=== PATIENT | male | born 1965 ===

== ENCOUNTER 2018-11-09 16:34 | Observation (INO) ==
[2018-11-09] MEDS ORDERED: PNEUMOCOCCAL VACCINE (13 VALENT) 0.5 ML SYRINGE IM ONE (18:17)
[2018-11-09] MEDS ORDERED: NITROGLYCERIN SL 0.4 MG TABLET SL PRN (18:34)
[2018-11-09] MEDS ORDERED: GLUCAGON 1 MG VIAL IM PRN (18:34)
[2018-11-09] MEDS ORDERED: DEXTROSE 50% 25 GM/50 ML SYRINGE IV PRN (18:34)
[2018-11-09] MEDS ORDERED: ACETAMINOPHEN 325 MG TABLET PO PRN (18:34)
[2018-11-09] MEDS ORDERED: ONDANSETRON 4 MG/2 ML VIAL IV PRN (18:34)
[2018-11-09] MEDS: SODIUM CHLORIDE 0.45% 1,000 ML IV SCH (18:45)
[2018-11-09] MEDS ORDERED: SIMVASTATIN 20 MG TABLET PO SCH (21:00)
[2018-11-09] MEDS: INSULIN REGULAR 100 UNIT/ML SUBCUT SCH (22:11)
[2018-11-10 00:49] LABS: Basophils % 0.4 % (0.0-0.8); Eosinophils # 1.1 10*3/uL (0.0-0.87); Hematocrit 40.2 VOL% (42.0-52.0); Hemoglobin 14.3 GM/DL (14.0-18.0); Immature Granulocytes % 0.4 %; Immature Granulocytes Absolute 0.03 #; Lymphocytes # 1.2 10*3/uL (1.4-4.0); Lymphocytes % 15.8 % (21.2-54.2); Mean Corpuscular HGB Conc 35.6 GM/DL (32-36); Mean Corpuscular Hemoglobin 32 PG (27-34); Mean Corpuscular Volume 90.1 FL (87-102); Mean Platelet Volume 10.1 FL (9.6-12.0); Monocytes # 0.4 10*3/uL (0.11-0.8); Monocytes % 5.3 % (1.7-12.7); Neutrophils # 4.8 10*3/uL (1.4-7.4); Neutrophils % 63.1 % (38.7-73.9); Platelet Count 111 T/CUMM (130-400); Red Blood Count 4.46 MC/CUMM (3.8-5.5); Red Cell Distribution Width 12.7 % (9.3-17.3); White Blood Count 7.6 T/CUMM (4-12)
[2018-11-10 01:18] LABS: Albumin 2.8 G/DL (3.4-5.0)
[2018-11-10 01:19] LABS: Osmolality,Calculated 284.8 MOS/KG (273-304); Potassium 3.7 MMOL/L (3.5-5.1); Risk Ratio 5.96
[2018-11-10 01:29] LABS: Eosinophils 13 % (0-10); Lymphocytes 17 % (20-55); Segmented Neutrophils 64 % (50-85)
[2018-11-10 01:30] LABS: Reactive Lymphocytes 2+
[2018-11-10 01:32] LABS: Hypochromasia 1+; Platelet Estimate Decreased; Total Cells Counted 100
[2018-11-10] MEDS: SODIUM CHLORIDE 0.45% 1,000 ML IV SCH (02:33)
[2018-11-10 07:46] VITALS: BP 132/72
[2018-11-10] MEDS ORDERED: metFORMIN 500 MG TABLET PO SCH (08:00)
[2018-11-10] MEDS: INSULIN REGULAR 100 UNIT/ML SUBCUT SCH (08:59)
[2018-11-10] MEDS ORDERED: sitaGLIPtin 100 MG TABLET PO SCH (09:00)
[2018-11-10] MEDS ORDERED: PANTOPRAZOLE 40 MG TABLET PO SCH (09:00)
[2018-11-10] MEDS ORDERED: ASPIRIN EC 325 MG TABLET PO SCH (09:00)
[2018-11-10] MEDS ORDERED: ENOXAPARIN 40 MG/0.4 ML SYRINGE SUBCUT SCH (09:00)
[2018-11-10] MEDS ORDERED: CHOLECALCIFEROL 5,000 UNIT TABLET PO SCH (09:00)
== END 2018-11-10 11:20 | disposition home or self-care (01) ==
LOC: N.TELEN 18:10 → SUATTDRO 18:10 → INTOOBSV 18:10
PROVIDERS: ADMIT Internal Medicine; ATTEND Internal Medicine